=== PATIENT | female | born 2000 | race Caucasian/White ===

== ENCOUNTER 2020-10-28 11:23 | Inpatient (IN) ==
[2020-10-28] MEDS ORDERED: LACTATED RINGER'S 1,000 ML IV PRN (11:46)
[2020-10-28] MEDS ORDERED: OXYTOCIN 30 UNITS/500 ML BAG IV PRN ×2 (11:46→12:46)
--- NOTE | 2020-10-28 11:54 | History & Physical Report ---
Date of Service October 28, 2020 Assessment & Plan (1) Active labor at term: Plan: 19 yo at 40.3 wks in active labor, GBS neg VS febrile, FHR reassuring Declined epidural for pain Admit, monitor, Labs, IVF, anticipate History of Present Illness Primary Care Provider: Yana Fuentes PA-C Patient is a 19 yo at 40.3 wks, presented to L&D with ctxs started at 01:30 with minimal bleeding She is moving in the room and seems painful. Not sure about LOF? +FM's Her has been uncomplicated. GBS negative No COVID symptoms Allergies Allergy/AdvReac Type Severity Reaction Status Date / Time No Known Allergies Allergy Unknown Verified 10/04/19 23:05 Home Medications Medication Instructions Recorded Confirmed Type diphenhydramine HCl 25 mg capsule 25 - 50 mg PO Q6H PRN #20 cap 09/25/20 Rx (Benadryl) epinephrine 0.3 mg/0.3 mL 0.3 mg IM Q4H PRN #1 ea 09/25/20 Rx injection, auto-injector prednisone 20 mg tablet 40 mg PO DAILY #8 tab 09/25/20 Rx Patient History Medical History Foot fracture, right Third trimester Social History Smoking Status: Never smoker Second Hand Exposure: No; Hx Alcohol Use: No Hx Substance Use: No Preferred Language: [place] marital status: Single Feels Safe at Home: Yes [employer] History No h/o STD's, no h/o HSV/ Chlamydia/ GC Review of Systems as per Subjective / HPI Physical Exam Constitutional: well developed, well nourished and + acute distress Genitourinary: normal external appearance (WET) OB Exam Abdomen: + vertex Manual OB Exam: + cervical dilation 8 cm, + cervical effacement 80% and + station 0 (bulging bag) OB Exam Monitor Tracing: + external uterine monitor used and + category I Results & Data ([facility]) Vital Signs (Past 12 Hours) Vital Signs Temp Pulse Resp BP 10/28/20 11:29 36.7 C 103 H 22 130/83
[2020-10-28] MEDS ORDERED: fentaNYL citrate 100 MCG/2 ML VIAL ONE (12:06)
[2020-10-28] MEDS ORDERED: BUPIVACAINE 0.25% 30 ML VIAL ONE (12:06)
[2020-10-28] MEDS ORDERED: SODIUM CHLORIDE 0.9% INJ 10 ML VIAL ONE (12:06)
[2020-10-28] MEDS ORDERED: ePHEDrine sulfate 50 MG/ML AMP ONE (12:06)
[2020-10-28] MEDS ORDERED: fentaNYL 2MCG/ML ROPIVACAINE 1.25MG/ML 100 ML BAG EPI ONE (12:07)
[2020-10-28] MEDS ORDERED: ePHEDrine sulfate 50 MG/ML AMP IV PRN (12:13)
[2020-10-28] MEDS ORDERED: NALOXONE HCL 1 MG in SODIUM CHLORIDE 0.9% 1000ML 1,000 ML IV PRN (12:13)
[2020-10-28] MEDS ORDERED: diphenhydrAMINE 50 MG/ML VIAL IV PRN (12:13)
[2020-10-28] MEDS ORDERED: fentaNYL 2MCG/ML ROPIVACAINE 1.25MG/ML 100 ML BAG EPI PRN (12:13)
[2020-10-28] MEDS ORDERED: NALBUPHINE HCL INJ 10 MG/ML AMP IV PRN (12:13)
[2020-10-28] MEDS ORDERED: NALOXONE HCL 0.4 MG/1 ML VIAL/CARP IV PRN (12:13)
--- NOTE | 2020-10-28 12:13 | Anesthesiology Consultation ---
Date of Service October 28, 2020 Assessment & Plan ASA ASA2 Proposed Anesthesia Anesthesia Type: Labor Epidural Risk / Benefits Reviewed With: PT / POA / Parent / Guardian, Accepts Plan and Informed Consent Obtained History Allergies Allergy/AdvReac Type Severity Reaction Status Date / Time No Known Allergies Allergy Unknown Verified 10/04/19 23:05 Medications Home Medications Medication Instructions Recorded Confirmed Last Taken diphenhydramine HCl 25 mg capsule 25 - 50 mg PO Q6H PRN #20 cap 09/25/20 Unknown (Benadryl) epinephrine 0.3 mg/0.3 mL 0.3 mg IM Q4H PRN #1 ea 09/25/20 Unknown injection, auto-injector prednisone 20 mg tablet 40 mg PO DAILY #8 tab 09/25/20 Unknown Past Medical History Medical History Foot fracture, right Third trimester Exercise / Class Metabolic Activity II 4-5 Yardwork/Stairs/Walk up hill Past Anesthesia History No Hx of Anesthesia Complications and No Family Hx of Anesthesia Complications History of PONV No Hx of PONV and No Hx of Motion Sickness Social History Smoking Status: Never smoker Hx Alcohol Use: No Hx Substance Use: No substance use type: does not use Review of Systems denies fever/cough/ colds/ chest pain/ SOB/ ROSEMARY denies ROSEMARY Physical Exam Vital Signs Last Vital Signs Temp 36.7 C 10/28/20 11:29 Pulse 103 H 10/28/20 11:29 Resp 22 10/28/20 11:29 BP 130/83 10/28/20 11:29 ENMT Mouth: no TMJ abnormality and no dentition abnormality Thyromental Distance: > or= 3.5 Finger Breadths Mallampati Class: II Neck neck extension not limited Respiratory normal respiratory effort; no respiratory distress Auscultation: lungs clear to auscultation bilaterally Cardiovascular Rate/Rhythm: regular rate and regular rhythm Neurologic moves all extremities Psychiatric Orientation: alert and oriented x 3
[2020-10-28 12:40] LABS: Hemoglobin 9.7 g/dL (12.0-16.0); Mean Corpuscular Hemoglobin 22.2 pg (25-34); Mean Corpuscular Hgb Conc 30.3 g/dL (32-36); Mean Corpuscular Volume 73.2 fL (80-100); Mean Platelet Volume 10.7 fL (7.4-10.4); Platelet Count 390 K/uL (130-400); RDW Coefficient of Variation 17.7 % (11.5-14.5); RDW Standard Deviation 46.3 fL (36.4-46.3); Red Blood Count 4.37 M/uL (4.2-5.4); White Blood Count 14.73 K/uL (4.8-10.8)
[2020-10-28] MEDS ORDERED: oxyCODONE/ACETAMINOPHEN 5mg/325mg TAB PO PRN (12:46)
[2020-10-28] MEDS ORDERED: bisacodyL 10 MG SUPP PR PRN (12:46)
[2020-10-28] MEDS ORDERED: SUPERCREAM 0.870% 15 GM JAR EXT PRN (12:46)
[2020-10-28] MEDS ORDERED: MEASLES, MUMPS & RUBELLA VIRUS VIAL SQ ONE (12:46)
[2020-10-28] MEDS ORDERED: BENZOCAINE 20% AER SPR 82.5 GM CAN EXT PRN (12:46)
[2020-10-28] MEDS ORDERED: HYDROCORTISONE ACETATE 25 MG SUPP PR PRN (12:46)
[2020-10-28] MEDS ORDERED: ACETAMINOPHEN 325 MG TAB PO PRN (12:46)
[2020-10-28] MEDS ORDERED: DIPHTHERIA/TETANUS/PERTUSSIS 0.5 ML SYR/VIAL IM ONE (12:46)
[2020-10-28] MEDS ORDERED: IBUPROFEN 600 MG TAB PO PRN (12:46)
--- NOTE | 2020-10-28 12:54 | Delivery Summary ---
Vaginal Delivery Summary Date of Service October 28, 2020 Vaginal Delivery Summary Patient is found to be fully dilated and desired to push. She pushed through only two contractions and delivered the head without difficulty. Shoulders were delivered with minimal traction and baby was handed off to the mother. Mouth and nose were suctioned, cord was clamped x2 and cut at 1 minute delay. Baby was vigorously moving and crying at that point. Vagina and perineum were checked for lacerations. There were superficial first-degree labial lacerations bilaterally. Patient has not had epidural and declined lidocaine injection with repair. They were hemostatic. Rest of the vagina and perineum were intact. Placenta was found to be in the vagina, delivered spontaneously as intact and complete. Lower segment was cleared off all clots and debris, fundus was firm and EBL was 200 mL. Mom and baby tolerated the procedure well. Sponge and instrument count was correct x2. Baby was a viable male , Apgars 8/9, weight is pending. No complications happened and I was present during whole pr ocedure.
[2020-10-28] MEDS: DOCUSATE SODIUM 100 MG CAP PO SCH (20:47)
[2020-10-29] MEDS ORDERED: FERROUS SULFATE 325 MG TAB PO SCH ×2 (07:00→08:00)
[2020-10-29] MEDS ORDERED: PRENATAL VITAMIN 1 TAB PO SCH (08:00)
[2020-10-29 08:41] LABS: Hematocrit (blood only) 30.8 % (37-47); Mean Corpuscular Hemoglobin 21.8 pg (25-34); Mean Corpuscular Hgb Conc 29.2 g/dL (32-36); Mean Corpuscular Volume 74.6 fL (80-100); Mean Platelet Volume 10.8 fL (7.4-10.4); Platelet Count 348 K/uL (130-400); RDW Coefficient of Variation 17.8 % (11.5-14.5); RDW Standard Deviation 46.9 fL (36.4-46.3); Red Blood Count 4.13 M/uL (4.2-5.4); White Blood Count 14.68 K/uL (4.8-10.8)
--- NOTE | 2020-10-29 08:44 | Obstetrical Progress Note ---
Date of Service October 29, 2020 Subjective Ambulation: ambulating normally Voiding: no voiding problems Passing Gas:: Yes Diet Tolerance:: regular diet Lochia:: Small Current Pain Level(1-10): 0 doing well denies shortness of breath Physical Exam Constitutional WD/WN, vitals as above comfortable abdomen soft and non-tender no edema neg Becky's for d/c home f/u with PCP for Covid Results & Data [facility]) Vital Signs (Past 12 Hours) Vital Signs Temp Pulse Resp BP Pulse Ox 10/29/20 07:45 36.9 C 103 H 16 113/77 99 10/29/20 04:00 36.9 C 94 H 18 115/78 97 10/29/20 00:30 36.9 C 94 H 18 117/76 98 Laboratory Results 10/28/20 10/28/20 10/28/20 11:56 12:08 12:08 WBC 14.73 H RBC 4.37 Hgb 9.7 L Hct 32.0 L MCV 73.2 L MCH 22.2 L MCHC 30.3 L RDW Std Deviation 46.3 RDW Coeff of Brii 17.7 H Plt Count 390 MPV 10.7 H COVID-19 Eval [facility] SARS-CoV-2, RNA, NAAT POSITIVE A* 10/29/20 06:00 WBC 14.68 H RBC 4.13 L Hgb 9.0 L Hct 30.8 L MCV 74.6 L MCH 21.8 L MCHC 29.2 L RDW Std Deviation 46.9 H RDW Coeff of Brii 17.8 H Plt Count 348 MPV 10.8 H COVID-19 Eval Order SARS-CoV-2, RNA, NAAT
[2020-10-29] MEDS: DOCUSATE SODIUM 100 MG CAP PO SCH (09:07)
[2020-10-29] MEDS ORDERED: bisacodyL 5 MG TABEC PO SCH (20:00)
--- NOTE | 2020-11-05 13:18 | Coding Query ---
CODING QUERY To promote full compliance with coding requirements relating to patient care, provider participation is requested in all cases of neuro intensivist physician uncertainty. Please assist us with the question(s) below: Coding Question(s): The Progress Note on 10/29 documents, "f/u with PCP for Covid" and there is a laboratory results showing a 10/28/20 COVID-19 EVAL order with SARS-CoV-2, RNA, NAAT POSITIVE A. Please specify below, in your clinical opinion. ( x ) Followup with PCP for COVID-19 positive labwork result, or, COVID-19 Infection ( ) Followup with PCP for covid - Other: Please Specify Physician's Response(s): Thank you Supriya Vincent Principal Diagnosis: "that condition established after study, to be chiefly responsible for occasioning the admission of the patient to the hospital for care." Co-Existing Principal Diagnosis: "when two or more diagnoses equally meet the criteria for principal diagnosis as determined by the circumstances of admission, diagnostic work up, and/or therapy provided, and the Alphabetic Index, Tabular List, or another coding guideline does not provide sequencing direction, any one of the diagnoses may be sequenced first." "When the physician has documented what appears to be a current diagnosis in the body of the record, but has not included the diagnosis in the final diagnostic statement, the physician should be asked whether the diagnosis should be added." (Source Coding [facility] 2 QTR90. p3-4) HUM[place]
== END 2020-10-29 19:12 | disposition home or self-care (01) | DRG 805 ==
LOC: 4S1 11:23 → OPB 11:23 → 4S1 11:46 → 2W 18:05